=== PATIENT | male | born 1980 | race Caucasian/White ===

== ENCOUNTER 2023-10-26 21:36 | Emergency (ER) | payer OTHER | END 2023-10-26 22:25 | disposition home or self-care (01) | LOC: MW.ED 21:36 | DX: S46.211A Strain of muscle, fascia and tendon of other parts of biceps, right arm, initial encounter (principal); Z88.0 Allergy status to penicillin; X50.1XXA Overexertion from prolonged static or awkward postures, initial encounter | CPT/HCPCS: 73070-26-RT; 73070-RT; 99283 ==